=== PATIENT | male | born 1995 | race Caucasian/White ===

== ENCOUNTER 2018-06-08 23:05 | Emergency (ER) | payer BC, OTHER ==
[2018-06-09] MEDS: IBUPROFEN 600 MG TAB PO (01:12)
[2018-06-09] MEDS: HYDROCODONE/APAP (5/325) TAB PO (01:12)
== END 2018-06-09 02:40 | disposition home or self-care (01) ==
LOC: FTE 23:05
DX: S22.31XA Fracture of one rib, right side, initial encounter for closed fracture (principal); S40.012A Contusion of left shoulder, initial encounter; Y04.0XXA Assault by unarmed brawl or fight, initial encounter
CPT/HCPCS: 71100; 73030; 99284-25

== ENCOUNTER 2018-06-13 02:29 | Emergency (ER) | payer BC ==
[2018-06-13] MEDS: HYDROCODONE/APAP (5/325) TAB PO (03:16)
[2018-06-13] MEDS: ONDANSETRON (ODT) 4 MG TAB ODT (03:16)
== END 2018-06-13 04:40 | disposition home or self-care (01) ==
LOC: FTE 02:29
DX: S22.31XD Fracture of one rib, right side, subsequent encounter for fracture with routine healing (principal); F17.210 Nicotine dependence, cigarettes, uncomplicated; R07.9 Chest pain, unspecified; X58.XXXD Exposure to other specified factors, subsequent encounter
CPT/HCPCS: 71045; 99283-25